=== PATIENT | female | born 1970 | race Two or more races ===

== ENCOUNTER 2022-09-15 11:42 | Outpatient (CLI) | payer OTHER ==
[~2022-09-15 11:42] MED LIST: ATACAN; AVALIDE 300-12.1 TA1 PO; CINTROID; COMBIGAN OP; MIRALAX12 EA PO; SURFAK240 M1 PO; SYNTHROID100 MCG PO; ULTRACET PO; ZIAC; ZIAC 2.5-6.25 M1 TAB PO
== END 2022-09-15 11:48 | disposition home or self-care (01) ==
LOC: RAD 11:42
DX: E04.2 Nontoxic multinodular goiter (principal); M54.50 Low back pain, unspecified; M54.2 Cervicalgia; M25.552 Pain in left hip; M25.551 Pain in right hip

== ENCOUNTER 2022-11-08 07:54 | Outpatient (CLI) | payer OTHER | END 2022-11-08 07:57 | disposition home or self-care (01) | LOC: LAB 07:54 | DX: R73.9 Hyperglycemia, unspecified (principal); E03.9 Hypothyroidism, unspecified; E55.9 Vitamin D deficiency, unspecified; E78.2 Mixed hyperlipidemia; E53.8 Deficiency of other specified B group vitamins ==

== ENCOUNTER 2023-04-06 10:04 | Outpatient (CLI) | payer OTHER | END 2023-04-06 10:10 | disposition home or self-care (01) | LOC: MAMO-SONO 10:04 | PROVIDERS: ATTEND Obstetrics & Gynecology Gynecology | DX: N60.12 Diffuse cystic mastopathy of left breast (principal); N60.11 Diffuse cystic mastopathy of right breast ==

== ENCOUNTER 2023-04-08 08:32 | Outpatient (CLI) | payer OTHER ==
[2023-04-08 09:40] LABS: PH,URINE 6.5 (5.0-8.0); URINE APPEARANCE Clear; URINE BILIRRUBIN Negative (NEGATIVE); URINE BLOOD Negative; URINE COLOR Yellow; URINE GLUCOSE Negative (NEGATIVE); URINE LEUKOCYTE Negative; URINE NITRATE Negative; URINE PROTEIN Negative (NEGATIVE); URINE UROBILINOGEN 0.2 E.U./dl
[2023-04-08 09:41] LABS: URINE BACTERIA 705.5 uL (0.0-1933); URINE EPITHELIAL CELLS 9.1 uL (0.0-38.8); URINE RBC 20.6 uL (0.0-20.8)
[2023-04-08 09:42] LABS: HEMOGLOBIN 12.7 g/dL (12.0-15.00); MEAN CELL VOLUME 87.3 fL (80.00-100.00); MEAN CORPUSCULAR HEMOGLOBIN 29.2 pg (27.00-32.0); MEAN CORPUSCULAR HGB CONC 33.5 g/dl (32.0-36.0); PLATELET COUNT 219 K/uL (150-450); RED BLOOD COUNT 4.35 M/uL (4.00-6.00); RED CELL DISTRIBUTION WIDTH 13.1 % (11.5-14.5)
[2023-04-08 09:43] LABS: URINE WBC 0.3 uL (0.0-23.2)
[2023-04-08 10:17] LABS: ALBUMIN 3.9 gm/dL (3.4-5.0); BILIRUBIN TOTAL 0.51 mg/dL (0.3-1.2); CALCIUM 9.6 mg/dL (8.5-10.1); CHOL HDL RATIO 2.9 (0-5.0); CREATININE SERUM 0.53 mg/dL (0.55-1.02); GFR 120.21; GLOBULINA 2.9 G/DL (2.4-3.5); POTASSIUM 3.97 mEq/L (3.5-5.1); TOTAL PROTEIN 6.8 gm/dL (6.4-8.2); TSH 1.72 uIU/mL (0.358-3.74)
== END 2023-04-08 08:33 | disposition home or self-care (01) ==
LOC: LAB 08:32
PROVIDERS: ATTEND Internal Medicine
DX: E11.65 Type 2 diabetes mellitus with hyperglycemia (principal); E11.21 Type 2 diabetes mellitus with diabetic nephropathy; I10 Essential (primary) hypertension; E03.8 Other specified hypothyroidism; E55.9 Vitamin D deficiency, unspecified; E78.00 Pure hypercholesterolemia, unspecified

== ENCOUNTER 2023-12-06 06:21 | Outpatient (CLI) | payer OTHER ==
[2023-12-06 06:58] LABS: HEMATOCRIT 37.4 % (36.0-45.00); HEMOGLOBIN 12.7 g/dL (12.0-15.00); MEAN CELL VOLUME 85.5 fL (80.00-100.00); MEAN CORPUSCULAR HEMOGLOBIN 29.1 pg (27.00-32.0); PLATELET COUNT 250 K/uL (150-450); RED BLOOD COUNT 4.37 M/uL (4.00-6.00); RED CELL DISTRIBUTION WIDTH 13.5 % (11.5-14.5)
[2023-12-06 07:07] LABS: URINE APPEARANCE Clear; URINE BILIRRUBIN Negative (NEGATIVE); URINE BLOOD Negative; URINE COLOR Yellow; URINE GLUCOSE Negative (NEGATIVE); URINE KETONE Negative (NEGATIVE); URINE LEUKOCYTE Negative; URINE NITRATE Negative; URINE PROTEIN Negative (NEGATIVE); URINE UROBILINOGEN 0.2 E.U./dl
[2023-12-06 07:12] LABS: URINE BACTERIA 1069.5 uL (0.0-1933); URINE EPITHELIAL CELLS 13.7 uL (0.0-38.8); URINE RBC 5.9 uL (0.0-20.8); URINE WBC 9.7 uL (0.0-23.2)
[2023-12-06 07:27] LABS: URINE CAST 0.15 uL (0.0-1.40)
[2023-12-06 07:48] LABS: ALBUMIN 3.8 gm/dL (3.4-5.0); BILIRUBIN TOTAL 0.49 mg/dL (0.3-1.2); CHOL HDL RATIO 3.6 (0-5.0); CREATININE SERUM 0.55 mg/dL (0.55-1.02); GFR 115.18; GLOBULINA 3.1 G/DL (2.4-3.5); POTASSIUM 3.89 mEq/L (3.5-5.1); TOTAL PROTEIN 6.9 gm/dL (6.4-8.2)
[2023-12-06 08:33] LABS: TSH 3.47 uIU/mL (0.358-3.74)
== END 2023-12-06 06:22 | disposition home or self-care (01) ==
LOC: LAB 06:21
PROVIDERS: ATTEND Internal Medicine
DX: E11.65 Type 2 diabetes mellitus with hyperglycemia (principal); E78.5 Hyperlipidemia, unspecified; E03.8 Other specified hypothyroidism; I10 Essential (primary) hypertension

== ENCOUNTER → 2024-06-18 12:21 | Outpatient (CLI) | payer OTHER ==
[2024-06-18 14:22] LABS: MYCOPLASMA PNEUMONIAE IGM NON REACTIVE (NO REACTIVE)
== END | disposition home or self-care (01) ==
LOC: LAB 12:21
PROVIDERS: ATTEND General Practice
DX: R05.1 Acute cough (principal); J11.1 Influenza due to unidentified influenza virus with other respiratory manifestations; J40 Bronchitis, not specified as acute or chronic; R06.02 Shortness of breath; M35.81 Multisystem inflammatory syndrome; Z20.822 Contact with and (suspected) exposure to COVID-19

== ENCOUNTER 2024-06-18 13:22 | Outpatient (CLI) | payer OTHER | END 2024-06-18 13:26 | disposition home or self-care (01) | LOC: MAMO-SONO 13:22 | PROVIDERS: ATTEND Obstetrics & Gynecology Gynecology | DX: M06.4 Inflammatory polyarthropathy (principal); N60.11 Diffuse cystic mastopathy of right breast; N60.12 Diffuse cystic mastopathy of left breast ==